=== PATIENT | female | born 1955 | race Caucasian/White ===

== ENCOUNTER 2016-11-23 02:30 | Inpatient (IN) | payer BC ==
[2016-11-23] VITALS (7 sets, daily range): BP systolic 93–127; BP diastolic 46–75
[~2016-11-23] VITALS: Ht 167.6 cm; Wt 56.9 kg
[~2016-11-23 02:30] MED LIST: ALEN70SO3 PO; ANAS1TAB3 PO; ASPI325T11 PO; ATOR40TA PO; CELE100C PO; PANT40TA3 PO; TRAM50TA PO; VORT10TA PO
[2016-11-23] MEDS: IV NORMAL SALINE 1000ML BAG 1,000 ML IV SCH ×3 (03:18→21:21)
[2016-11-23] MEDS: HYDROmorphone 2 MG/ML VIAL IV PRN ×6 (03:19→23:15)
[2016-11-23] MEDS: ONDANSETRON PF 4 MG/2 ML VIAL. IV PRN ×3 (03:19→13:22)
[2016-11-23 06:20] LABS: BASO # 0.1 x10^3/uL (0.0-0.2); BASO % 1 % (0-3); EOS % 0 % (0-3); HEMATOCRIT 40.8 % (36.0-47.0); HEMOGLOBIN 13.5 g/dL (12.0-15.5); LYMPH # 1.8 x10^3/uL (1.0-4.8); LYMPH % 21 % (24-48); MEAN CORPUSCULAR HEMOGLOBIN 31 pg (25-35); MEAN CORPUSCULAR HGB CONC 33 g/dL (31-37); MEAN CORPUSCULAR VOLUME 94 fL (79-100); MONO % 10 % (0-9); NEUT % 67 % (31-73); PLATELET COUNT 206 x10^3/uL (140-400); RED BLOOD COUNT 4.36 x10^6/uL (3.50-5.40); RED CELL DISTRIBUTION WIDTH 13.2 % (11.5-14.5); WHITE BLOOD COUNT 8.2 x10^3/uL (4.0-11.0)
[2016-11-23 07:18] LABS: ALBUMIN 2.9 g/dL (3.4-5.0); ALBUMIN/GLOBULIN RATIO 0.9 (1.0-1.7); CALCIUM 8.1 mg/dL (8.5-10.1); CREATININE 0.9 mg/dL (0.6-1.0); GFR 63.9; POTASSIUM 4.1 mmol/L (3.5-5.1); TOTAL BILIRUBIN 0.9 mg/dL (0.2-1.0); TOTAL PROTEIN 6.2 g/dL (6.4-8.2)
--- NOTE | 2016-11-23 09:02 | PDOC2 ---
GI CONSULT Reason For Consult: Splenic infarct HPI: HPI: 61 y/o female transferred from [facility]. ER physician notes indicate CT for left- sided abd pain showed splenic infarct vs hematoma. No imaging here. Labs significant for AST 675, ALT 685, Alk Phos 183. Per pt, she began feeling ill w / fullness and constipation on 11/19. H/o this; in fact, seen by GI/Dr. Mendoza in 12/2015 for chronic epigastric/periumbilical pain, n/v, constipation, and h/o GERD. At that time, CTs and SBFT unrevealing, EGD w/ non-erosive gastritis, GET normal; she was started on Amitiza for constipation and given Protonix for GERD. She now takes both of these PRN. Additionally used an enema on 11/19. Believes left-sided/LUQ pain (wraps around side to flank/back) began 11/20. Denies trauma. Hurts to move, keeps from sleeping. Has had associated nausea. Reports colonoscopy ~5 years ago w/ polyps. PMH: PMH: breast cancer s/p bilateral mastectomy w/ Anastrozole, cholecystectomy, hysterectomy, appendectomy, psoriasis FH: Family History: No pertinent hx Social History: Smoke: <1 pack per day ALCOHOL: occassional Drugs: None ROS: GEN: Denies fevers, chills, sweats HEENT: Denies blurred vision, sore throat CV: Denies chest pain RESP: Denies shortness of air, cough GI: Per HPI : Denies hematuria, dysuria ENDO: Denies weight changes NEURO: Denies confusion, dizziness MSK: Denies weakness, joint pain/swelling SKIN: Denies jaundice, pruritus VItals: Vitals: Vital Signs Date Time Temp Pulse Resp B/P Pulse Ox O2 Delivery O2 Flow Rate FiO2 11/23/16 07:40 98.0 81 20 99/56 94 Nasal Cannula 2.0 98.0 Labs: Labs: Laboratory Tests Test 11/23/16 06:00 White Blood Count 8.2x10^3/uL (4.0-11.0) Red Blood Count 4.36x10^6/uL (3.50-5.40) Hemoglobin 13.5g/dL (12.0-15.5) Hematocrit 40.8% (36.0-47.0) Mean Corpuscular Volume 94fL (79-100) Mean Corpuscular Hemoglobin 31pg (25-35) Mean Corpuscular Hemoglobin Concent 33g/dL (31-37) Red Cell Distribution Width 13.2% (11.5-14.5) Platelet Count 206x10^3/uL (140-400) Neutrophils (%) (Auto) 67% (31-73) Lymphocytes (%) (Auto) 21% (24-48) Monocytes (%) (Auto) 10% (0-9) Eosinophils (%) (Auto) 0% (0-3) Basophils (%) (Auto) 1% (0-3) Neutrophils # (Auto) 5.5x10^3uL (1.8-7.7) Lymphocytes # (Auto) 1.8x10^3/uL (1.0-4.8) Monocytes # (Auto) 0.9x10^3/uL (0.0-1.1) Eosinophils # (Auto) 0.0x10^3/uL (0.0-0.7) Basophils # (Auto) 0.1x10^3/uL (0.0-0.2) Sodium Level 142mmol/L (136-145) Potassium Level 4.1mmol/L (3.5-5.1) Chloride Level 107mmol/L (98-107) Carbon Dioxide Level 26mmol/L (21-32) Anion Gap 9 (6-14) Blood Urea Nitrogen 10mg/dL (7-20) Creatinine 0.9mg/dL (0.6-1.0) Estimated GFR (Cockcroft-Gault) 63.9 BUN/Creatinine Ratio 11 (6-20) Glucose Level 96mg/dL (70-99) Calcium Level 8.1mg/dL (8.5-10.1) Total Bilirubin 0.9mg/dL (0.2-1.0) Aspartate Amino Transf (AST/SGOT) 675U/L (15-37) Alanine Aminotransferase (ALT/SGPT) 685U/L (14-59) Alkaline Phosphatase 183U/L (46-116) Total Protein 6.2g/dL (6.4-8.2) Albumin 2.9g/dL (3.4-5.0) Albumin/Globulin Ratio 0.9 (1.0-1.7) Allergies: Coded Allergies: No Known Drug Allergies (Unverified , 12/24/15) Medications: Current Medications Medications (Trade) Dose Ordered Sig/Beena Route PRN Reason Start Time Stop Time Status Last Admin Dose Admin Sodium Chloride (Iv Sodium Chloride 0.9% 1000ml Bag) 1,000 ml @ 125 mls/hr Q8H IV 11/23/16 03:00 11/23/16 03:18 Ondansetron HCl (Zofran) 4 mg PRN Q4HRS PRN IV NAUSEA/VOMITING 11/23/16 03:00 11/23/16 03:19 Hydromorphone HCl (Dilaudid) 1 mg PRN Q2HR PRN IV PAIN 11/23/16 03:00 11/23/16 06:06 Imaging: Imaging: - PE: GEN: NAD HEENT: Atraumatic, PERRL LUNGS: CTAB anteriorly HEART: RRR ABD: NABS, S/ND, LUQ/left flank tenderness to light palpation EXTREMITY: No edema SKIN: No rashes, no jaundice NEURO/PSYCH: A & O 3 A/P: A/P: LUQ pain w/ abnormal CT (at [facility]) -onset 11/19-11/20 -ER physician note suggests CT shows splenic infarct vs hematoma (note normal Hgb) -does have chronic abd pain, work-up in 12/2015 included CTs, SBFT, GET, and EGD -take Amitiza and antacids PRN Abnormal LFTs -AST and ALT in 600s, Alk Phos 183 Nausea CRC screen, h/o colon polyps -says last colonoscopy 5 years ago -- D/w Dr. Mendoza. Will check ultrasound of liver. ZOILA BARKLEY Nov 23, 2016 09:02
--- NOTE | 2016-11-23 09:25 | PDOC2 ---
DEMIAN PARMAR Romel COUNSELING DIRECTOR 11/23/16 0925: CONSULT Date of Consult Date of Consult DATE: 11/23/16 TIME: 09:14 Reason for Consult Reason for Consult: splenic infarct Referring Physician Referring Physician: Dr Yung Identification/Chief Complaint Chief Complaint abdominal pain Source Source: Chart review, Patient History of Present Illness Reason for Visit: abdomen felt tight, constipated, started laxatives---yesterday had not had much results, did an enema--this had good results, however once her abdomen was improved she noted to have significant LUQ pain that wrapped to her back. This is a new pain and not similar to pain in past. Denies any trauma, injury, or coughing She has had some abdominal pain (epigastric) in past and seen GI She was evaluated at [facility] and records reveal a possible splenic infarct vs hematoma(no imaging brought with pt, nurse to FU on imaging from there), transferred her per pt request She is currently still having significant LUQ pain and associated nausea Past Medical History GI: Constipation, GERD Heme/Onc: Cancer (breast) Past Surgical History Past Surgical History: Appendectomy, Cholecystectomy, Other (joe mastectomy) Family History Family History: Other (non contributory to current illness ) Social History <1 pack per day ALCOHOL: occassional Drugs: None Lives: with Family Current Problem List Problem List Problems Medical Problems: (1) Splenic infarct Status: Acute Current Medications Current Medications Current Medications Sodium Chloride (Iv Sodium Chloride 0.9% 1000ml Bag) 1,000 ml @ 125 mls/hr Q8H IV Last administered on 11/23/16 03:18; Start 11/23/16 at 03:00 Ondansetron HCl (Zofran) 4 mg PRN Q4HRS PRN IV NAUSEA/VOMITING Last administered on 11/23/16 03:19; Start 11/23/16 at 03:00 Hydromorphone HCl (Dilaudid) 1 mg PRN Q2HR PRN IV PAIN Last administered on 06:06; Start 11/23/16 at 03:00 Active Scripts Active Reported Lipitor (Atorvastatin Calcium) 40 Mg Tablet 1 Tab PO QHS Tramadol Hcl 50 Mg Tablet 50 Mg PO PRN Q4HRS PRN Arimidex (Anastrozole) 1 Mg Tablet 2 Mg PO DAILY Allergies Allergies: Coded Allergies: No Known Drug Allergies (Unverified , 5/24/16) ROS General: No: Chills, Other (fevers) PSYCHOLOGICAL ROS: No: Anxiety, Depression Eyes: No Blurry vision, No Double vision HEENT: No: Heacaches, Sore Throat Hematological and Lymphatic: No: Bleeding Problems, Blood Clots Respiratory: No: Cough, Shortness of breath Cardiovascular: No Chest Pain, No Palpitations Gastrointestinal: Yes Other (see hpi) Genitourinary: No Dysuria, No Hematuria Musculoskeletal: No Joint Pain, No Muscle Pain Neurological: No Impaired Coord/balance, No Numbness/Tingling Skin: Yes Other (psoriasis ) Physical Exam General: Alert, Oriented X3, Cooperative, Other (acute pain ) HEENT: PERRLA, Mucous membr. moist/pink Lungs: Clear to auscultation, Normal air movement Heart: Regular rate, Normal S1, Normal S2, No murmurs Abdomen: Soft, Other (LUQ/to back TTP with palpation, no ecchymosis seen) Extremities: No clubbing, No cyanosis Skin: No breakdown, Other (psoriasis on arms ) Neuro: Normal speech, Sensation intact Psych/Mental Status: Mental status NL, Mood NL MUSCULOSKELETAL: No deformity, No swelling Vitals VITALS Vital Signs Date Time Temp Pulse Resp B/P Pulse Ox O2 Delivery O2 Flow Rate FiO2 11/23/16 07:40 98.0 81 20 99/56 94 Nasal Cannula 2.0 98.0 Labs Labs Laboratory Tests Test 11/23/16 06:00 White Blood Count 8.2x10^3/uL (4.0-11.0) Red Blood Count 4.36x10^6/uL (3.50-5.40) Hemoglobin 13.5g/dL (12.0-15.5) Hematocrit 40.8% (36.0-47.0) Mean Corpuscular Volume 94fL (79-100) Mean Corpuscular Hemoglobin 31pg (25-35) Mean Corpuscular Hemoglobin Concent 33g/dL (31-37) Red Cell Distribution Width 13.2% (11.5-14.5) Platelet Count 206x10^3/uL (140-400) Neutrophils (%) (Auto) 67% (31-73) Lymphocytes (%) (Auto) 21% (24-48) Monocytes (%) (Auto) 10% (0-9) Eosinophils (%) (Auto) 0% (0-3) Basophils (%) (Auto) 1% (0-3) Neutrophils # (Auto) 5.5x10^3uL (1.8-7.7) Lymphocytes # (Auto) 1.8x10^3/uL (1.0-4.8) Monocytes # (Auto) 0.9x10^3/uL (0.0-1.1) Eosinophils # (Auto) 0.0x10^3/uL (0.0-0.7) Basophils # (Auto) 0.1x10^3/uL (0.0-0.2) Sodium Level 142mmol/L (136-145) Potassium Level 4.1mmol/L (3.5-5.1) Chloride Level 107mmol/L (98-107) Carbon Dioxide Level 26mmol/L (21-32) Anion Gap 9 (6-14) Blood Urea Nitrogen 10mg/dL (7-20) Creatinine 0.9mg/dL (0.6-1.0) Estimated GFR (Cockcroft-Gault) 63.9 BUN/Creatinine Ratio 11 (6-20) Glucose Level 96mg/dL (70-99) Calcium Level 8.1mg/dL (8.5-10.1) Total Bilirubin 0.9mg/dL (0.2-1.0) Aspartate Amino Transf (AST/SGOT) 675U/L (15-37) Alanine Aminotransferase (ALT/SGPT) 685U/L (14-59) Alkaline Phosphatase 183U/L (46-116) Total Protein 6.2g/dL (6.4-8.2) Albumin 2.9g/dL (3.4-5.0) Albumin/Globulin Ratio 0.9 (1.0-1.7) Laboratory Tests Test 11/23/16 06:00 White Blood Count 8.2x10^3/uL (4.0-11.0) Red Blood Count 4.36x10^6/uL (3.50-5.40) Hemoglobin 13.5g/dL (12.0-15.5) Hematocrit 40.8% (36.0-47.0) Mean Corpuscular Volume 94fL (79-100) Mean Corpuscular Hemoglobin 31pg (25-35) Mean Corpuscular Hemoglobin Concent 33g/dL (31-37) Red Cell Distribution Width 13.2% (11.5-14.5) Platelet Count 206x10^3/uL (140-400) Neutrophils (%) (Auto) 67% (31-73) Lymphocytes (%) (Auto) 21% (24-48) Monocytes (%) (Auto) 10% (0-9) Eosinophils (%) (Auto) 0% (0-3) Basophils (%) (Auto) 1% (0-3) Neutrophils # (Auto) 5.5x10^3uL (1.8-7.7) Lymphocytes # (Auto) 1.8x10^3/uL (1.0-4.8) Monocytes # (Auto) 0.9x10^3/uL (0.0-1.1) Eosinophils # (Auto) 0.0x10^3/uL (0.0-0.7) Basophils # (Auto) 0.1x10^3/uL (0.0-0.2) Sodium Level 142mmol/L (136-145) Potassium Level 4.1mmol/L (3.5-5.1) Chloride Level 107mmol/L (98-107) Carbon Dioxide Level 26mmol/L (21-32) Anion Gap 9 (6-14) Blood Urea Nitrogen 10mg/dL (7-20) Creatinine 0.9mg/dL (0.6-1.0) Estimated GFR (Cockcroft-Gault) 63.9 BUN/Creatinine Ratio 11 (6-20) Glucose Level 96mg/dL (70-99) Calcium Level 8.1mg/dL (8.5-10.1) Total Bilirubin 0.9mg/dL (0.2-1.0) Aspartate Amino Transf (AST/SGOT) 675U/L (15-37) Alanine Aminotransferase (ALT/SGPT) 685U/L (14-59) Alkaline Phosphatase 183U/L (46-116) Total Protein 6.2g/dL (6.4-8.2) Albumin 2.9g/dL (3.4-5.0) Albumin/Globulin Ratio 0.9 (1.0-1.7) Assessment/Plan Assessment/Plan abdominal pain, possible splenic infarct vs hematoma(no imaging, nurse to FU)-- hgb 13.5 elevated LFTS, normal at [facility] last night GI following Tobaccoism breast cancer history constipation monitor, CT report from [facility] GI following, US of abdomen pending MIGUEL SUAREZ MD 11/23/16 1535: CONSULT Allergies Allergies: Coded Allergies: No Known Drug Allergies (Unverified , 12/24/15) Assessment/Plan Assessment/Plan addendum i saw and examined her. i reviewed the available [facility] records. the entire ct report is not on her chart. no films to review. i repeated gonzalez parts of her consult 61 female developed abd pain on . was diffuse then localized to her LUQ. became severe. radiated to left flank. not improved with an enema. worse if she takes a deep breath. pain is sharp. denies strenuous activity, trauma or recent URI (no hx to suggest mono). the partial [facility] ct report says: ill defined complex hypoattenuation in posterior lower spleen 2.9x5.3x3.4 cm. no impression or differential available abd soft nd mild LUQ tenderness hgb ~13 does not appear ill u/s at [facility] does not demonstrate splenic abnormality a/p ill defined lesion involving spleen per partial records from [facility]. at this point , the most expeditious way to view her spleen and 'take the guesswork out' of her care is to repeat the CT. she and her family are agreeable. DEMIAN PARMAR APRN Nov 23, 2016 09:25 MIGUEL SUAREZ MD Nov 23, 2016 15:35
[2016-11-23] MEDS: ANASTROZOLE 1 MG TABLET PO SCH (12:39)
[2016-11-23] MEDS: TRAMADOL 50 MG TABLET. PO PRN ×2 (12:43→21:30)
--- NOTE | 2016-11-23 14:22 | RAD ---
Abdominal ultrasound, 11/23/2016: History: Abnormal liver function tests, splenic hematoma/infarct The gallbladder is surgically absent. The common bile duct measures 10-11 mm, probably related to the postcholecystectomy state. No intrahepatic biliary ductal dilatation is seen. There is no evidence of a hepatic mass. The visualized portions of the pancreas show no significant abnormality. The spleen measures 10 cm in craniocaudad extent. No splenic abnormality is delineated. The patient's outside study which reportedly showed some sort splenic abnormality is not currently available for correlative purposes. The kidneys are unremarkable. There is atherosclerotic plaquing of the abdominal aorta without evidence of aneurysm. The visualized portions of the inferior vena cava show no abnormality. No free fluid is evident in the abdomen. IMPRESSION: 1. Status post cholecystectomy. 2. Mild prominence of the common hepatic duct is probably secondary to the postcholecystectomy state. 3. Aortic atherosclerosis. 4. No acute abdominal abnormality is detected.
[2016-11-23] MEDS ORDERED: IOHEXOL 300 MG/ML 75 ML VIAL IV ONE (16:15)
[2016-11-23] MEDS ORDERED: IOHEXOL 240 MG/ML 50ML VIAL. PO ONE (16:15)
[2016-11-23] MEDS ORDERED: CONTRAST GIVEN MC PRN (16:15)
--- NOTE | 2016-11-23 16:53 | RAD ---
CT abdomen and pelvis with IV contrast History: Possible splenic infarction on outside imaging. Comparison: Referenced outside imaging is not available. Comparison to CT abdomen pelvis 12/20/2015 was made. Technique: After administration of oral and intravenous contrast, 75 mL Omnipaque 300, helical CT of the abdomen and pelvis was performed from the lung bases through the ischial tuberosities. Axial, sagittal, and coronal reconstructions were obtained. One or more of the following individualized dose reduction techniques were utilized for the study: Automated exposure control Adjustment of mA and/or kV according to patient's size Use of iterative reconstruction technique. Findings: Images of the lower chest demonstrate bilateral silicone breast implants, incompletely visualized. Liver, pancreas, and bilateral adrenal glands are unremarkable. Bilateral kidneys enhance symmetrically. There is no evidence of bowel obstruction. No free air is seen in the abdomen or pelvis. Urinary bladder is unremarkable. Uterus is absent. There is wedge-shaped area of decreased enhancement involving the inferior aspect of the spleen. There is associated adjacent fat stranding inflammation. Findings are compatible with recent splenic infarction. Calcified atherosclerotic plaquing can be seen involving the splenic artery as well as the aorta and iliac vessels. Impression: Recent infarction involving the inferior aspect of the spleen.
--- NOTE | 2016-11-23 20:11 | PDOC ---
GENERAL General: significant luq pain due to splenic infarct. also with significantly elevated transaminases and not sure how these two fit together exactly but have consulted GI for opinion. surgery eval also ordered in case splenectomy a reality which doesn't appear to be case now. see dictated H&P. Problems: VITAL SIGNS Vital Signs: Vital Signs Date Time Temp Pulse Resp B/P Pulse Ox O2 Delivery O2 Flow Rate FiO2 11/23/16 19:02 16 Nasal Cannula 2.0 11/23/16 15:14 98.6 79 93/46 97 98.6 I & O I & O Intake and Output 11/23/16 07:00 Intake Total 440 ml Output Total 500 ml Balance -60 ml Intake Oral 440 ml Output Urine Total 500 ml ALLERGIES Allergies: Allergies Coded Allergies Type Severity Reaction Last Updated Verified No Known Drug Allergies 12/24/15 No MEDS Medications: Current Medications Medications (Trade) Dose Ordered Sig/Beena Start Time Stop Time Status Last Admin Dose Admin Anastrozole (Arimidex) 2 mg DAILY 11/23/16 12:00 11/23/16 12:39 2 MG Atorvastatin Calcium (Lipitor) 40 mg QHS 11/23/16 21:00 Hydromorphone HCl (Dilaudid) 1 mg PRN Q2HR PRN 11/23/16 03:00 11/23/16 19:02 1 MG Info (Do NOT chart on this entry -- for MONITORING) 1 each PRN DAILY PRN 11/23/16 16:15 11/25/16 16:14 Iohexol (Omnipaque 240 Mg/ml) 50 ml 1X ONCE 11/23/16 16:15 11/23/16 16:16 DC Iohexol (Omnipaque 300 Mg/ml) 75 ml 1X ONCE 11/23/16 16:15 11/23/16 16:16 DC 11/23/16 16:11 75 ML Ondansetron HCl (Zofran) 4 mg PRN Q4HRS PRN 11/23/16 03:00 11/23/16 13:22 4 MG Sodium Chloride (Iv Sodium Chloride 0.9% 1000ml Bag) 1,000 ml @ 125 mls/hr Q8H 11/23/16 03:00 11/23/16 12:29 125 MLS/HR Tramadol HCl (Ultram) 50 mg PRN Q4HRS PRN 11/23/16 12:00 4/24/17 12:43 50 MG LAB Lab: Laboratory Tests Test 11/23/16 06:00 White Blood Count 8.2x10^3/uL (4.0-11.0) Red Blood Count 4.36x10^6/uL (3.50-5.40) Hemoglobin 13.5g/dL (12.0-15.5) Hematocrit 40.8% (36.0-47.0) Mean Corpuscular Volume 94fL (79-100) Mean Corpuscular Hemoglobin 31pg (25-35) Mean Corpuscular Hemoglobin Concent 33g/dL (31-37) Red Cell Distribution Width 13.2% (11.5-14.5) Platelet Count 206x10^3/uL (140-400) Neutrophils (%) (Auto) 67% (31-73) Lymphocytes (%) (Auto) 21% (24-48) Monocytes (%) (Auto) 10% (0-9) Eosinophils (%) (Auto) 0% (0-3) Basophils (%) (Auto) 1% (0-3) Neutrophils # (Auto) 5.5x10^3uL (1.8-7.7) Lymphocytes # (Auto) 1.8x10^3/uL (1.0-4.8) Monocytes # (Auto) 0.9x10^3/uL (0.0-1.1) Eosinophils # (Auto) 0.0x10^3/uL (0.0-0.7) Basophils # (Auto) 0.1x10^3/uL (0.0-0.2) Sodium Level 142mmol/L (136-145) Potassium Level 4.1mmol/L (3.5-5.1) Chloride Level 107mmol/L (98-107) Carbon Dioxide Level 26mmol/L (21-32) Anion Gap 9 (6-14) Blood Urea Nitrogen 10mg/dL (7-20) Creatinine 0.9mg/dL (0.6-1.0) Estimated GFR (Cockcroft-Gault) 63.9 BUN/Creatinine Ratio 11 (6-20) Glucose Level 96mg/dL (70-99) Calcium Level 8.1mg/dL (8.5-10.1) Total Bilirubin 0.9mg/dL (0.2-1.0) Aspartate Amino Transf (AST/SGOT) 675U/L (15-37) Alanine Aminotransferase (ALT/SGPT) 685U/L (14-59) Alkaline Phosphatase 183U/L (46-116) Total Protein 6.2g/dL (6.4-8.2) Albumin 2.9g/dL (3.4-5.0) Albumin/Globulin Ratio 0.9 (1.0-1.7) ARLEEN HOOD MD Nov 23, 2016 20:11
[2016-11-23] MEDS: ATORVASTATIN CALCIUM 40 MG TABLET. PO SCH (21:20)
--- NOTE | 2016-11-23 21:37 | HP ---
ADMIT DATE: 11/23/2016 CHIEF COMPLAINT AND HISTORY OF PRESENT ILLNESS: This is a 61-year-old white female who is well known to me from followup in the office. The patient at the beginning had some epigastric left upper quadrant pain last . She took an enema thinking that it may be constipation. It was no better. It got progressively worse to where it was excruciating in the evening prior to admission where she went to the ____ [facility] satellite. She was found to have either a hematoma or an infarct of the spleen; was needing IV pain medicine. It was felt that she should be admitted and she wished to go where I went so during the night arranged the transfer to [facility]. PAST MEDICAL HISTORY: Remarkable for prior carcinoma of the breast. She takes an ____ for the same. PAST SURGICAL HISTORY: She has had a hysterectomy, appendectomy, cholecystectomy, and psoriasis. FAMILY HISTORY: Positive for diabetes. SOCIAL HISTORY: She is a smoker of 1 pack per day, occasionally drinks alcohol, does not use drugs; is . MEDICATIONS: Brought with the patient, listed on the computer and have been addressed. ALLERGIES: She has no known drug allergies. REVIEW OF SYSTEMS: As mentioned above. PHYSICAL EXAMINATION: GENERAL: She is a well-developed, well-nourished white female, relatively comfortable with pain medicines at the time of my examination. VITAL SIGNS: Stable. She is afebrile. HEENT: Unremarkable. NECK: Supple without adenopathy or thyromegaly. CHEST: Clear to auscultation and percussion. HEART: Regular rate and rhythm without S3, S4 or murmur. ABDOMEN: Reveal marked left upper quadrant tenderness on exam, otherwise benign. EXTREMITIES: Without cyanosis, clubbing or edema. NEUROLOGIC: She is intact. LABORATORY DATA: Initial lab from the Emergency Room was only remarkable for slight elevation of her white blood count. Labs drawn here at [facility] shows some fairly marked elevation of transaminases with an AST of 675 and ALT of ____ although these were really not checked at the Emergency Room there. IMPRESSION: 1. Splenic infarct with pain; elevated liver function tests, unsure how this ties into this. 2. Other problems listed above. PLAN: The patient has been admitted. She is being dehydrated. IV pain medicines will be utilized. GI and surgery will consulted and the patient will be monitored, managed and treated appropriately. ARLEEN HOOD MD DR: Carlos JOB#: [id number] / [id number]
[2016-11-24 03:02] VITALS: BP 110/57
[2016-11-24] MEDS: HYDROmorphone 2 MG/ML VIAL IV PRN ×5 (03:15→19:58)
[2016-11-24] MEDS: IV NORMAL SALINE 1000ML BAG 1,000 ML IV SCH ×3 (03:16→18:28)
[2016-11-24 07:45] VITALS: BP 117/64
[2016-11-24] MEDS: ONDANSETRON PF 4 MG/2 ML VIAL. IV PRN (09:21)
[2016-11-24] MEDS: ANASTROZOLE 1 MG TABLET PO SCH (09:25)
[2016-11-24] MEDS: TRAMADOL 50 MG TABLET. PO PRN ×2 (09:28→20:56)
[2016-11-24 10:36] VITALS: BP 114/63
--- NOTE | 2016-11-24 11:12 | PDOC ---
Provider Note Provider Note LUQ pain and nausea persist. afeb vss abd soft nd mild LUQ tenderness ct with splenic infarct a/p splenic infarct. no surgical plans. diet as tolerated. will sign off. please call with questions or change in condition. thank you MIGUEL SUAREZ MD Nov 24, 2016 11:12
[2016-11-24] MEDS: ALBUTEROL SULFATE 2.5 MG/3 ML NEBU. NEB SCH ×3 (11:47→18:45)
--- NOTE | 2016-11-24 12:00 | PDOC ---
Subjective: Subjective: Per pt and daughter - some nausea w/o vomiting, left-sided pain now more toward back, urinary hesitancy. Objective: Objective: Per RN - some nausea this morning, ongoing pain. Vital Signs: Vital Signs Date Time Temp Pulse Resp B/P Pulse Ox O2 Delivery O2 Flow Rate FiO2 11/24/16 11:51 98 Nasal Cannula 1.0 11/24/16 10:36 98.9 79 16 114/63 98.9 Imaging: CT A/P w/ oral and IV contrast 11/23/16 Images of the lower chest demonstrate bilateral silicone breast implants, incompletely visualized. Liver, pancreas, and bilateral adrenal glands are unremarkable. Bilateral kidneys enhance symmetrically. There is no evidence of bowel obstruction. No free air is seen in the abdomen or pelvis. Urinary bladder is unremarkable. Uterus is absent. There is wedge-shaped area of decreased enhancement involving the inferior aspect of the spleen. There is associated adjacent fat stranding inflammation. Findings are compatible with recent splenic infarction. Calcified atherosclerotic plaquing can be seen involving the splenic artery as well as the aorta and iliac vessels. Impression: Recent infarction involving the inferior aspect of the spleen. Abd US 11/23/16 The gallbladder is surgically absent. The common bile duct measures 10-11 mm, probably related to the postcholecystectomy state. No intrahepatic biliary ductal dilatation is seen. There is no evidence of a hepatic mass. The visualized portions of the pancreas show no significant abnormality. The spleen measures 10 cm in craniocaudad extent. No splenic abnormality is delineated. The patient's outside study which reportedly showed some sort splenic abnormality is not currently available for correlative purposes. The kidneys are unremarkable. There is atherosclerotic plaquing of the abdominal aorta without evidence of aneurysm. The visualized portions of the inferior vena cava show no abnormality. No free fluid is evident in the abdomen. IMPRESSION: 1. Status post cholecystectomy. 2. Mild prominence of the common hepatic duct is probably secondary to the postcholecystectomy state. 3. Aortic atherosclerosis. 4. No acute abdominal abnormality is detected. PE: GEN: NAD LUNGS: CTAB HEART: RRR ABD: less LUQ tenderness, BS+ NEURO/PSYCH: A & O 3 A/P: LUQ/left flank pain w/ abnormal CT suggesting slepnic infarct -onset 11/19-11/20 -reviewed CT from [facility], repeat CT at this facility as above -does have chronic abd pain, work-up in 12/2015 included CTs, SBFT, GET, and EGD -reports colonoscopy w/ polyps ~5 years ago Abnormal LFTs -AST and ALT in 600s, Alk Phos 183 on 11/23/16 -abd US w/o hepatic mass Nausea Urinary hesitancy -per primary -- Will restart PPI and Amitiza, which she takes PRN at home. Surgery has seen/signed off. Heme consult pending. Will review w/ Dr. Mendoza. ZOILA BARKLEY Nov 24, 2016 12:00
[2016-11-24] MEDS: PANTOPRAZOLE 40 MG TABLET.DR. PO SCH (12:50)
--- NOTE | 2016-11-24 13:20 | PDOC ---
Provider Note Provider Note Hem/Onc consult 1. Splenic infarct - hypercoag labs ordered. f/u with Dr Storm for results No role for anticoagulation. See dictation KRISTEL ANTUNEZ MD Nov 24, 2016 13:20
[2016-11-24 15:06] LABS: BILIRUBIN,URINE NEGATIVE (NEG); GLUCOSE,URINE NEGATIVE (NEG); NITRITE,URINE NEGATIVE (NEG); PROTEIN,URINE NEGATIVE (NEG-TRACE)
[2016-11-24 15:21] LABS: BACTERIA,URINE 0 /HPF (0-FEW); RBC,URINE 0 /HPF (0-2); SQUAMOUS EPITHELIAL CELL,UR FEW /LPF
[2016-11-24 15:50] VITALS: BP 112/54
[2016-11-24] MEDS: LUBIPROSTONE 8 MCG CAPSULE PO SCH (17:17)
[2016-11-24 19:00] VITALS: BP 100/50
--- NOTE | 2016-11-24 19:47 | PDOC ---
GENERAL General: vss and afebrile. awake and alert and daughter in attendance. some less luq tenderness but still very significant. chest clear and heart regular. us liver negative will elevated transaminases. will recheck lft's in am. GI and surgery input appreciated. Problems: VITAL SIGNS Vital Signs: Vital Signs Date Time Temp Pulse Resp B/P Pulse Ox O2 Delivery O2 Flow Rate FiO2 11/24/16 18:46 Room Air 11/24/16 17:47 16 2.0 11/24/16 17:30 97.8 97.8 11/24/16 15:50 84 112/54 97 I & O I & O Intake and Output 11/24/16 07:00 Intake Total 480 ml Output Total 1900 ml Balance -1420 ml Intake Oral 480 ml Output Urine Total 1900 ml ALLERGIES Allergies: Allergies Coded Allergies Type Severity Reaction Last Updated Verified No Known Drug Allergies 12/24/15 No MEDS Medications: Current Medications Medications (Trade) Dose Ordered Sig/Beena Start Time Stop Time Status Last Admin Dose Admin Albuterol Sulfate (Ventolin Neb Soln) 2.5 mg RTQID 11/24/16 12:00 11/24/16 18:45 2.5 MG Anastrozole (Arimidex) 2 mg DAILY 11/23/16 12:00 11/24/16 09:25 2 MG Atorvastatin Calcium (Lipitor) 40 mg QHS 11/23/16 21:00 11/23/16 21:20 40 MG Hydromorphone HCl (Dilaudid) 1 mg PRN Q2HR PRN 11/23/16 03:00 11/24/16 17:17 1 MG Info (Do NOT chart on this entry -- for MONITORING) 1 each PRN DAILY PRN 11/23/16 16:15 11/25/16 16:14 Iohexol (Omnipaque 240 Mg/ml) 50 ml 1X ONCE 11/23/16 16:15 11/23/16 16:16 DC Iohexol (Omnipaque 300 Mg/ml) 75 ml 1X ONCE 11/23/16 16:15 11/23/16 16:16 DC 11/23/16 16:11 75 ML Lubiprostone (Amitiza) 8 mcg BIDWMEALS 11/24/16 17:00 11/24/16 17:17 8 MCG Ondansetron HCl (Zofran) 4 mg PRN Q4HRS PRN 11/23/16 03:00 11/24/16 09:21 4 MG Pantoprazole Sodium (Protonix) 40 mg DAILYAC 11/24/16 12:30 11/24/16 12:50 40 MG Sodium Chloride (Iv Sodium Chloride 0.9% 1000ml Bag) 1,000 ml @ 125 mls/hr Q8H 11/23/16 03:00 11/24/16 18:28 125 MLS/HR Tramadol HCl (Ultram) 50 mg PRN Q4HRS PRN 11/23/16 12:00 11/24/16 09:28 50 MG LAB Lab: Laboratory Tests Test 11/24/16 15:00 Urine Collection Type Unknown Urine Color Yellow Urine Clarity Clear Urine pH 6.0 Urine Specific [place] <=1.005 Urine Protein Negativemg/dL (NEG-TRACE) Urine Glucose (UA) Negativemg/dL (NEG) Urine Ketones (Stick) Negativemg/dL (NEG) Urine Blood Negative (NEG) Urine Nitrite Negative (NEG) Urine Bilirubin Negative (NEG) Urine Urobilinogen Dipstick 1.0mg/dL (0.2 mg/dL) Urine Leukocyte Esterase Trace (NEG) Urine RBC 0/HPF (0-2) Urine WBC 1-4/HPF (0-4) Urine Squamous Epithelial Cells Few/LPF Urine Bacteria 0/HPF (0-FEW) ARLEEN HOOD MD Nov 24, 2016 19:47
[2016-11-24] MEDS: ATORVASTATIN CALCIUM 40 MG TABLET. PO SCH (20:56)
[2016-11-24 22:50] VITALS: BP 133/65
[2016-11-25] MEDS: HYDROmorphone 2 MG/ML VIAL IV PRN (02:53)
[2016-11-25] MEDS: IV NORMAL SALINE 1000ML BAG 1,000 ML IV SCH ×2 (02:54→11:00)
[2016-11-25 03:05] VITALS: BP 104/57
[2016-11-25 04:21] LABS: ALBUMIN 2.5 g/dL (3.4-5.0); ALBUMIN/GLOBULIN RATIO 0.9 (1.0-1.7); CREATININE 0.8 mg/dL (0.6-1.0); GFR 73.2; POTASSIUM 3.5 mmol/L (3.5-5.1); TOTAL BILIRUBIN 0.9 mg/dL (0.2-1.0); TOTAL PROTEIN 5.3 g/dL (6.4-8.2)
[2016-11-25 04:24] LABS: ALBUMIN 2.5 g/dL (3.4-5.0); DIRECT BILIRUBIN 0.3 mg/dL (0.0-0.2); TOTAL BILIRUBIN 0.9 mg/dL (0.2-1.0); TOTAL PROTEIN 4.9 g/dL (6.4-8.2)
[2016-11-25 07:00] VITALS: BP 132/66
--- NOTE | 2016-11-25 08:13 | PDOC ---
GENERAL General: vss with tmax 99.7. awake and alert and pain definitely as bad as on admission. will start po norco and advance diet today and if does well potential dc if imaging ok. Problems: VITAL SIGNS Vital Signs: Vital Signs Date Time Temp Pulse Resp B/P Pulse Ox O2 Delivery O2 Flow Rate FiO2 11/25/16 03:25 16 96 Room Air 11/25/16 03:05 99.7 89 104/57 99.7 11/24/16 19:40 2.0 I & O I & O Intake and Output 11/25/16 06:59 Intake Total 1840 ml Output Total 2800 ml Balance -960 ml Intake Oral 640 ml IV Total 1200 ml Output Urine Total 2800 ml # Bowel Movements 1 ALLERGIES Allergies: Allergies Coded Allergies Type Severity Reaction Last Updated Verified No Known Drug Allergies 12/24/15 No MEDS Medications: Current Medications Medications (Trade) Dose Ordered Sig/Beena Start Time Stop Time Status Last Admin Dose Admin Albuterol Sulfate (Ventolin Neb Soln) 2.5 mg RTQID 11/24/16 12:00 11/24/16 18:45 2.5 MG Anastrozole (Arimidex) 2 mg DAILY 11/23/16 12:00 11/24/16 09:25 2 MG Atorvastatin Calcium (Lipitor) 40 mg QHS 11/23/16 21:00 11/24/16 20:56 40 MG Hydromorphone HCl (Dilaudid) 1 mg PRN Q2HR PRN 11/23/16 03:00 11/25/16 02:53 1 MG Info (Do NOT chart on this entry -- for MONITORING) 1 each PRN DAILY PRN 11/23/16 16:15 11/25/16 16:14 Iohexol (Omnipaque 240 Mg/ml) 50 ml 1X ONCE 11/23/16 16:15 11/23/16 16:16 DC Iohexol (Omnipaque 300 Mg/ml) 75 ml 1X ONCE 11/23/16 16:15 11/23/16 16:16 DC 11/23/16 16:11 75 ML Lubiprostone (Amitiza) 8 mcg BIDWMEALS 11/24/16 17:00 11/24/16 17:17 8 MCG Ondansetron HCl (Zofran) 4 mg PRN Q4HRS PRN 11/23/16 03:00 11/24/16 09:21 4 MG Pantoprazole Sodium (Protonix) 40 mg DAILYAC 11/24/16 12:30 11/24/16 12:50 40 MG Sodium Chloride (Iv Sodium Chloride 0.9% 1000ml Bag) 1,000 ml @ 125 mls/hr Q8H 11/23/16 03:00 11/25/16 02:54 125 MLS/HR Tramadol HCl (Ultram) 50 mg PRN Q4HRS PRN 11/23/16 12:00 11/24/16 20:56 50 MG LAB Lab: Laboratory Tests Test 11/24/16 15:00 11/25/16 03:12 Urine Collection Type Unknown Urine Color Yellow Urine Clarity Clear Urine pH 6.0 Urine Specific [place] <=1.005 Urine Protein Negativemg/dL (NEG-TRACE) Urine Glucose (UA) Negativemg/dL (NEG) Urine Ketones (Stick) Negativemg/dL (NEG) Urine Blood Negative (NEG) Urine Nitrite Negative (NEG) Urine Bilirubin Negative (NEG) Urine Urobilinogen Dipstick 1.0mg/dL (0.2 mg/dL) Urine Leukocyte Esterase Trace (NEG) Urine RBC 0/HPF (0-2) Urine WBC 1-4/HPF (0-4) Urine Squamous Epithelial Cells Few/LPF Urine Bacteria 0/HPF (0-FEW) Sodium Level 141mmol/L (136-145) Potassium Level 3.5mmol/L (3.5-5.1) Chloride Level 105mmol/L (98-107) Carbon Dioxide Level 29mmol/L (21-32) Anion Gap 7 (6-14) Blood Urea Nitrogen 3mg/dL (7-20) Creatinine 0.8mg/dL (0.6-1.0) Estimated GFR (Cockcroft-Gault) 73.2 BUN/Creatinine Ratio 4 (6-20) Glucose Level 95mg/dL (70-99) Calcium Level 8.0mg/dL (8.5-10.1) Total Bilirubin 0.9mg/dL (0.2-1.0) Direct Bilirubin 0.3mg/dL (0.0-0.2) Aspartate Amino Transf (AST/SGOT) 79U/L (15-37) Alanine Aminotransferase (ALT/SGPT) 234U/L (14-59) Alkaline Phosphatase 208U/L (46-116) Total Protein 5.3g/dL (6.4-8.2) Albumin 2.5g/dL (3.4-5.0) Albumin/Globulin Ratio 0.9 (1.0-1.7) ARLEEN HOOD MD Nov 25, 2016 08:13
[2016-11-25] MEDS ORDERED: HYDROCODONE/APAP 5/325MG TABLET. PO PRN (08:15)
[2016-11-25] MEDS: ALBUTEROL SULFATE 2.5 MG/3 ML NEBU. NEB SCH ×3 (08:32→15:31)
--- NOTE | 2016-11-25 09:23 | CONS ---
DATE OF CONSULTATION: 11/23/2016 REQUESTING PHYSICIAN: Dr. Arleen Preston REASON FOR CONSULTATION: Splenic infarct. HISTORY OF PRESENT ILLNESS: The patient is 61-year-old female who was diagnosed with right breast cancer T1cN1 invasive ductal carcinoma in July of 2011 grade 3, ER positive, VT negative, HER-2/georges negative. She underwent bilateral mastectomy and she received dose dense chemotherapy with Adriamycin and Cytoxan, followed by Taxol and then she was started on Arimidex from 07/2012. She has a BRCA2 mutation and she underwent hysterectomy and bilateral salpingo-oophorectomy in 05/2012. She has been following Dr. Angelina Storm and her last visit with Dr. Storm was in 09/2016 and there was no evidence of recurrence. The patient [facility] on 11/23/2016 with left-sided abdominal pain. She underwent CT scan of the abdomen and pelvis on 11/23/2016 that revealed a recent infarction involving the inferior aspect of the spleen. There was no evidence of malignancy. She was evaluated by both Gastroenterology and Surgery. Hematology/Oncology consultation was requested for hypercoagulable state workup. Her liver function tests were also noted to be elevated with AST of 675, ALT 685, alkaline phosphatase 183, albumin 2.9 on 11/23/2016. She denies any history of liver disease. Review of the prior records from 10/16/2016 reveals that her liver function tests were normal. Her AST was 19, ALT 15, alkaline phosphatase 101. PAST MEDICAL HISTORY: Breast cancer as described above, bilateral mastectomy, hysterectomy, bilateral oophorectomy, appendectomy, psoriasis. FAMILY HISTORY: Sister had breast cancer. Maternal aunt had breast cancer, maternal grandmother had breast cancer. SOCIAL HISTORY: She has smoked cigarettes for at least 40 years less than a pack a day and I have advised her to quit smoking. REVIEW OF SYSTEMS: A 12-point review of system was performed. Pertinent positives are mentioned in the history of present illness and the rest of the system review is negative. PHYSICAL EXAMINATION: GENERAL APPEARANCE: The patient is a 61-year-old female who is in no acute cardiorespiratory distress. VITAL SIGNS: Blood pressure 112/54, temperature 99.0. HEENT: Head atraumatic, normocephalic. Eyes: No icterus. NECK: Supple. CHEST: Bilaterally symmetrical. HEART: S1, S2 normal. ABDOMEN: Soft, nontender. CENTRAL NERVOUS SYSTEM: No focal deficits. LYMPHATICS: No lymphadenopathy. SKIN: No rashes. PSYCHOLOGIC: Mood and affect are appropriate. MUSCULOSKELETAL: No joint effusions. LABORATORY DATA: WBC 8.2, hemoglobin 13.5, platelet count 206, total bilirubin 0.9, AST 675, ALT 685. Alkaline phosphatase is 183. Total protein 6.2, albumin 2.9. IMPRESSION AND PLAN: 1. Splenic infarct. There is no evidence of a thrombus noted on CT scan. She does have a history of breast cancer in 2011. Clinically, there are no signs of recurrence and CT abdomen does not reveal any evidence of liver metastasis. I will initiate hypercoagulable state workup. I will also plan restaging CT scan of the chest and bone scan to evaluate for malignancy. I explained to her that the several causes for splenic infarction. Some of the causes of splenic infarction include hypercoagulable state, malignancy, embolic disease, myeloproliferative disorder, sickle cell disease etc. Her hemoglobin was normal and hence I do not suspect a myeloproliferative neoplasm or sickle cell disease. Appreciate gastrointestinal and surgical management. No surgery has been planned. 1. The patient will follow up with Dr. Angelina Storm upon discharge for continued management of her breast cancer and also to review the results of the hypercoagulable state workup. 2. Breast cancer in 2011, status post bilateral mastectomy, BRCA mutation is positive. She has also undergone hysterectomy and bilateral salpingo-oophorectomy. Clinically, there is no evidence of recurrence. I will obtain CT chest and bone scan to make sure she does not have any evidence of malignancy. 3. Elevated liver function tests, which is acute. Management per Gastroenterology. KRISTEL ANTUNEZ MD DR: IRA/carol JOB#: [id number] / [id number] ARLEEN Jarvis MD, AMY MD MTDD
[2016-11-25] MEDS: PANTOPRAZOLE 40 MG TABLET.DR. PO SCH (09:45)
[2016-11-25] MEDS: HYDROCODONE/APAP 5/325MG TABLET. PO PRN ×2 (09:45→16:23)
[2016-11-25] MEDS: LUBIPROSTONE 8 MCG CAPSULE PO SCH ×2 (09:46→17:00)
[2016-11-25] MEDS: ANASTROZOLE 1 MG TABLET PO SCH (09:49)
[2016-11-25 11:28] VITALS: BP 114/52
--- NOTE | 2016-11-25 13:32 | RAD ---
Nuclear medicine whole body bone scan History: Staging of breast cancer. Comparison: CT abdomen pelvis 11/23/2016. CT chest 11/25/2016. Technique: Examination performed after intravenous administration of 25.8 mCi Technetium 99m MDP. Planar images of the whole body were obtained in the anterior and posterior projections. Findings: Distribution of radiopharmaceutical appears physiologic. No focal activity to suggest osseous metastatic disease is identified. Activity involving the left mid forearm is favored to be from injection. Impression: No evidence of osseous metastatic disease.
--- NOTE | 2016-11-25 13:52 | RAD ---
CT of the chest without contrast, 11/25/2016: History: Breast cancer staging Noncontrast scans were obtained as requested. There have been bilateral mastectomies with bilateral breast implants in place. No axillary adenopathy is evident. There is mild calcific plaquing of the thoracic aorta without evidence of aneurysm. Minimal coronary artery calcification is present. The heart is not enlarged. A trace amount of pericardial fluid is present. There are granulomatous calcifications of the left hilum. No mediastinal adenopathy is seen. There is mild bilateral apical scarring. A calcified granuloma is present in the left upper lobe. There is a small amount of bilateral pleural fluid, not evident on the 11/23/2016 CT abdomen exam. There are moderate streaky bibasilar pulmonary opacities which have progressed since the previous study. The appearance suggests atelectasis with a possible component of scarring. No pulmonary mass is seen. There are scattered spurs in the spine. IMPRESSION: 1. Small bilateral pleural effusions have developed with moderate streaky bibasilar atelectasis. 2. No specific evidence of metastatic disease in the chest. PQRS Compliance Statement: One or more of the following individualized dose reduction techniques were utilized for this examination: 1. Automated exposure control 2. Adjustment of the mA and/or kV according to patient size 3. Use of iterative reconstruction technique
--- NOTE | 2016-11-25 14:11 | PDOC ---
Subjective: Subjective: Tells me pain significantly improved. Tolerating PO. Says waiting to DC tonight. Objective: Vital Signs: Vital Signs Date Time Temp Pulse Resp B/P Pulse Ox O2 Delivery O2 Flow Rate FiO2 11/25/16 11:28 98.3 78 20 114/52 94 Room Air 98.3 11/24/16 19:40 2.0 Labs: Laboratory Tests Test 11/24/16 15:00 11/25/16 03:12 Urine Collection Type Unknown Urine Color Yellow Urine Clarity Clear Urine pH 6.0 Urine Specific [place] <=1.005 Urine Protein Negativemg/dL Urine Glucose (UA) Negativemg/dL Urine Ketones (Stick) Negativemg/dL Urine Blood Negative Urine Nitrite Negative Urine Bilirubin Negative Urine Urobilinogen Dipstick 1.0mg/dL Urine Leukocyte Esterase Trace Urine RBC 0/HPF Urine WBC 1-4/HPF Urine Squamous Epithelial Cells Few/LPF Urine Bacteria 0/HPF Sodium Level 141mmol/L Potassium Level 3.5mmol/L Chloride Level 105mmol/L Carbon Dioxide Level 29mmol/L Anion Gap 7 Blood Urea Nitrogen 3mg/dL Creatinine 0.8mg/dL Estimated GFR (Cockcroft-Gault) 73.2 BUN/Creatinine Ratio 4 Glucose Level 95mg/dL Calcium Level 8.0mg/dL Total Bilirubin 0.9mg/dL Direct Bilirubin 0.3mg/dL Aspartate Amino Transf (AST/SGOT) 79U/L Alanine Aminotransferase (ALT/SGPT) 234U/L Alkaline Phosphatase 208U/L Total Protein 5.3g/dL Albumin 2.5g/dL Albumin/Globulin Ratio 0.9 Imaging: Bone Scan 11/24/16 Impression: No evidence of osseous metastatic disease. Chest CT 11/25/16 IMPRESSION: 1. Small bilateral pleural effusions have developed with moderate streaky bibasilar atelectasis. 2. No specific evidence of metastatic disease in the chest. PE: GEN: NAD, empty lunch tray LUNGS: decreased anteriorly HEART: RRR ABD: BS+, less LUQ tenderness NEURO/PSYCH: A & O 3 A/P: LUQ/left flank pain w/ abnormal CT suggesting splenic infarct -heme/onc has seen, imaging as above -work-up in 12/2015 for abd pain included CTs, SBFT, GET, and EGD -reports colonoscopy w/ polyps ~5 years ago -on PPI, Amitiza Abnormal LFTs -AST and ALT improved, Alk Phos elevated -abd US, CT A/P unrevealing -- Possible DC today - CT chest w/ small pleural effusions as above. ZOILA BARKLEY Nov 25, 2016 14:11
[2016-11-25 15:43] VITALS: BP 112/65
[2016-11-25] MEDS ORDERED: HYDR-971 PO (16:38)
== END 2016-11-25 17:00 | disposition home or self-care (01) | DRG 598 ==
LOC: 2 NORTH 02:30
PROVIDERS: ADMIT Family Medicine; ATTEND Family Medicine
DX: C50.919 Malignant neoplasm of unspecified site of unspecified female breast (principal); D68.59 Other primary thrombophilia; J98.11 Atelectasis; K21.9 Gastro-esophageal reflux disease without esophagitis; K59.00 Constipation, unspecified; Z83.3 Family history of diabetes mellitus; D73.5 Infarction of spleen; K29.70 Gastritis, unspecified, without bleeding; Z90.13 Acquired absence of bilateral breasts and nipples; Z90.710 Acquired absence of both cervix and uterus; D57.1 Sickle-cell disease without crisis; F17.200 Nicotine dependence, unspecified, uncomplicated; I70.0 Atherosclerosis of aorta; Z90.49 Acquired absence of other specified parts of digestive tract; L40.9 Psoriasis, unspecified; Z17.0 Estrogen receptor positive status [ER+]; Z80.3 Family history of malignant neoplasm of breast; Z85.3 Personal history of malignant neoplasm of breast; Z86.010 Personal history of colon polyps; G89.29 Other chronic pain
CPT/HCPCS: 36415; 71250; 74177; 76700; 78306; 80053; 80076; 81001; 85027; 87086; 94250; 94640; 94760; 96374; A9503; J1170; J2405; J7030; Q9967

== ENCOUNTER → 2019-04-12 | Outpatient (CLI) | payer BC, OTHER ==
[~2019-04-12] MED LIST changes: -ANAS1TAB3 PO; +ANAS1TAB47 PO; +CONTRAST GIVEN. MC PRN; +HYDR-3164 PO; +IOHEXOL 240 MG/ML 50ML VIAL. PO ONE; +IOHEXOL 300 MG/ML 100ML VIAL. IV ONE; -PANT40TA3 PO; +PANT40TA77 PO
--- NOTE | 2019-04-12 09:18 | RAD ---
Examination: CT ABD PELV W/ORAL IV CONTRAST History: Fecal impaction, change in bowel habits Comparison/Correlation: 11/23/2016 CT abdomen and pelvis with contrast Findings: Axial images of the abdomen and pelvis were obtained following IV and oral contrast. Visualized lung bases are clear. Left breast implant is partially seen. Cholecystectomy noted. Liver, spleen, pancreas, and adrenal glands are unremarkable. Kidneys are unremarkable. Slight distention of the common bile duct which probably represents reservoir effect is noted. Previously seen infarct or other process involving the spleen has resolved. Circumferential wall thickening of the colon is identified diffusely. Subtle stranding about the colon also is noted. Diverticulosis is present. No abscess. No extraluminal gas. No bowel obstruction. There is an intraluminal lipoma identified involving the proximal ascending colon measuring up to 2 cm diameter and this is seen on axial image 50 of series 2 and coronal image 21 of series 4. Small umbilical hernia contains omental fat. No enlarged abdominal or pelvic lymph nodes. Abdominal aortic and iliac arterial calcifications are evident. No abdominal aortic aneurysm. No ascites or pelvic free fluid. Bony structures are unremarkable for the patient's age. Urinary bladder is unremarkable. Hysterectomy noted. Impression: Circumferential wall thickening of the colon with subtle surrounding stranding is of concern for colitis. No abscess collection. Diverticulosis is evident. Intraluminal lipoma is present within the proximal ascending colon. PQRS Compliance Statement: One or more of the following individualized dose reduction techniques were utilized for this examination: 1. Automated exposure control 2. Adjustment of the mA and/or kV according to patient size 3. Use of iterative reconstruction technique Electronically signed by: Raul Mosquera MD (04/12/2019 9:15 AM) [facility]
== END | disposition home or self-care (01) ==
LOC: CT 06:51
PROVIDERS: ATTEND Internal Medicine Gastroenterology
DX: K42.9 Umbilical hernia without obstruction or gangrene (principal); K57.90 Diverticulosis of intestine, part unspecified, without perforation or abscess without bleeding; D17.5 Benign lipomatous neoplasm of intra-abdominal organs; I70.0 Atherosclerosis of aorta; I70.8 Atherosclerosis of other arteries; F17.200 Nicotine dependence, unspecified, uncomplicated; Z90.710 Acquired absence of both cervix and uterus; Z90.49 Acquired absence of other specified parts of digestive tract; Z98.82 Breast implant status; Z90.89 Acquired absence of other organs
CPT/HCPCS: 74177; Q9966; Q9967

== ENCOUNTER → 2020-01-09 | Outpatient (CLI) | payer BC ==
[~2020-01-09] MED LIST changes: -CONTRAST GIVEN. MC PRN; -IOHEXOL 240 MG/ML 50ML VIAL. PO ONE; -IOHEXOL 300 MG/ML 100ML VIAL. IV ONE
--- NOTE | 2020-01-09 13:19 | PAIN ---
DATE OF SERVICE: 01/09/2020 INITIAL CONSULTATION FOR PAIN CLINIC CHIEF COMPLAINT: Right low back and hip pain. HISTORY OF PRESENT ILLNESS: This is a 64-year-old female who presents with history of pain in the right hip and gluteus going on for about 6 months or so. She is unsure exactly the timeframe, but it has been bothering her at least that long, not a result of any specific injury or action that she is aware of, but it has been very painful in the right posterior gluteus, worse with changing positions, standing, walking, getting up from a seated position and with walking and occasionally will be a very sharp, shooting, stabbing pain. The patient reports otherwise it is a throbbing pain that can be very sharp. She also has restless legs, which is bothering her at night and is also hurting in the right gluteus as well. The patient did have MRI scan of the lumbar spine showing minimal diffuse disk bulges throughout L1-L2 through L5-S1 without any specific stenosis or significant central stenosis or neural foraminal stenosis throughout. She reports the pain is worse with changing positions, especially standing from a seated position or with walking or standing or bending forward. The patient rates her disability rating from 0-10, 10 being the worst, is a 6 with family home responsibilities, 8 with social activity, 10 with occupation and 9 with self-care and 7 with life support activities. The patient reports it awakens her from sleep at least 2-3 times a night, does not affect her bowel or bladder control, but does affect her ability to walk as she is fearful that will have a sharp pain and she is very cautious in how she walks and stands especially with stairs. The patient has tried tramadol, which helps by about 50%. She has not had any formal physical therapies, chiropractic treatments or other therapies at this time. PAST MEDICAL HISTORY: Significant for breast cancer status post bilateral mastectomy in 2012 and chemotherapy following, hyperlipidemia, gastroesophageal reflux, psoriasis. OTHER SURGERIES: Include total abdominal hysterectomy, cholecystectomy, abdominal hernia repair. CURRENT MEDICATIONS: Include atorvastatin, Arimidex, and pantoprazole. ALLERGIES: The patient has no known drug allergies. FAMILY HISTORY: Significant for heart disease and diabetes. SOCIAL HISTORY: The patient does not drink alcohol, does not use any illegal, illicit or recreational drugs. Smokes less than a pack of cigarettes a day for the past 30 years. The patient is , has 3 children, living at home, lives in [facility] and works at a [employer], where she is on her feet most of her working day. REVIEW OF SYSTEMS: Positive for those items mentioned in history of present illness. All systems reviewed and otherwise negative. It is complete, full and well documented on the patient's chart. PHYSICAL EXAMINATION: VITAL SIGNS: The patient's blood pressure is 138/76, pulse 88, respirations 16, temperature 98.3 degrees Fahrenheit, height is 5 feet 6 inches, weight is 134 pounds. GENERAL: The patient is awake, alert, oriented, appropriate, very pleasant demeanor. HEENT: Shows normocephalic, atraumatic. Extraocular movements are intact and symmetrical. Oral cavity: Mucous membranes moist and pink. Dentition is intact. NECK: Shows anterior throat supple without palpable lymphadenopathy noted. Swallow reflex symmetrical. CHEST: Shows normal on inspection with previous surgical scar from mastectomy bilaterally. Breath sounds are clear to auscultation bilaterally. No rales, rhonchi or wheezes auscultated. HEART: Shows S1, S2 clear. No murmurs auscultated. ABDOMEN: Soft, obese, nontender, nondistended. No palpable organomegaly is noted. No rebound or guarding demonstrated. BACK: Shows spine grossly in the midline. Normal appearing cervical lordotic curvature, thoracic kyphotic curvature slightly increased and some minor flattening of lumbar lordotic curvature. Lumbar paraspinous muscle shows symmetrical on inspection, on palpation shows some moderate tenderness diffusely, but only diffusely in the low lumbar distribution without trigger points, without atrophy or hypertrophy, without asymmetry. The patient has full rotational motion of lumbar spine, greater than 10 degrees right and left as well as extension greater than 10 degrees, forward flexion 45 degrees without significant pain reported. EXTREMITIES: The patient's lower extremities show deep tendon reflexes 2+ in the patellar, 1+ tendo-calcaneus tendons. Motor exam is strong with 5/5 dorsiflexion, extension, quadriceps and hamstring flexion symmetrical. Peripheral pulses are 1+ posterior tibia. No peripheral edema is noted. Straight leg raise noted to be negative for reproduction of radicular symptoms bilaterally. The patient's posterior gluteus on the right side is very tender with palpation over the area roughly of the piriformis musculature superior medial to the ischial tuberosity, but inferolateral to the iliac bone which is fairly easily palpable on rotation with significant tenderness and pain over this area, but without significant radiation into the lower extremity. Left side is nontender throughout. The patient is able to stand, stand on her toes without difficulty or loss of balance, walks with normal appearing gait, does not appear to favor the right or left lower extremity, is not using any assistive device such as canes or walkers to ambulate. SKIN: Shows warm and dry, good turgor. She does have some psoriasis on the elbows. Otherwise, no sores, rashes or bruises throughout. IMPRESSION: 1. This is a 64-year-old female with approximately 6 months or so history of pain in the right posterior gluteus consistent with piriformis-type syndrome. 2. MRI scan of lumbar spine as noted. 3. History of breast cancer with surgery and chemotherapy. 4. Cigarette smoking. PLAN: Options were discussed with the patient including conservative medical managements, physical therapies and interventional techniques. She would like to pursue interventional techniques. We discussed a right piriformis injection; however, she will wait for preauthorization with her insurance provider. Once this is approved, we have her return for right-sided piriformis intramuscular injection at that time. In the meantime, the patient will continue with stretching and strengthening exercises. We showed her some stretches to do specifically for the piriformis and the sacroiliac region. She will perform these in the meantime and will also try a Medrol Dosepak. The patient was given instruction as well as side effects to be aware of with the medication as well and we will follow up as scheduled. HARLAN LIEBERMAN MD DR: ROBERTO/carol JOB#: [id number] / [id number] ARLEEN Jarvis MD
== END ==
LOC: PNCL 09:02
PROVIDERS: ATTEND Anesthesiology
DX: M54.5 Low back pain (principal); M25.551 Pain in right hip; F17.210 Nicotine dependence, cigarettes, uncomplicated; Z85.3 Personal history of malignant neoplasm of breast
CPT/HCPCS: G0463

== ENCOUNTER → 2020-01-23 | Outpatient (CLI) | payer BC ==
[~2020-01-23] MED LIST changes: +BUPIVACAINE MPF 0.25% 10 ML VIAL. ONE; +IOHEXOL 180 MG/ML 10 ML VIAL. ONE; +methylPREDNISolone ACETATE 80 MG/ML VIAL. ONE
--- NOTE | 2020-01-23 12:07 | PAIN ---
DATE OF SERVICE: 01/23/2020 PROGRESS NOTE FOR PAIN CLINIC DIAGNOSES: 1. Right piriformis syndrome. 2. Lumbar degenerative disk disease. HISTORY OF PRESENT ILLNESS: The patient is a 64-year-old female who returns for followup status post initial evaluation and preauthorization for a piriformis injection on the right. The patient reports she did fairly well with some Medrol Dosepak medication that we sent her last time about 50% improved for several days, but the pain has returned now in the right posterior hip radiating to posterior thigh into the knee on the right side only. The patient reports it is worse with walking, standing, changing positions, can be a sharp pain at times, shooting into the leg as well, but mostly just dull and aching in the hip. The patient reports that 10 on a scale of 10 at its worse, the past week, 8 on average, 6 at its least and is an 8 today. The patient reports it is constant, burning, stinging and shooting, sometimes sharp and dull aching in the hip. The patient reports it awakens her from sleep if she lies on her right side, intermittently, not every night. The patient reports no new motor or sensory deficits, no new bowel or bladder incontinence or other complaints. PHYSICAL EXAMINATION: VITAL SIGNS: The patient's blood pressure 130/74, pulse 93, respirations 20, temperature 98.5 degrees Fahrenheit, weight is 132 pounds. GENERAL: The patient is awake, alert, oriented, appropriate, very pleasant demeanor. HEENT: Shows normocephalic, atraumatic. Extraocular movements are intact and symmetrical. Oral cavity: Mucous membranes moist and pink. Dentition is intact. NECK: Shows anterior throat supple without palpable lymphadenopathy noted. Swallow reflex symmetrical. Neck shows full rotational motion of the cervical spine without difficulty or pain reported. CHEST: Shows normal on inspection. Breath sounds are clear. No rales, rhonchi or wheezes auscultated. HEART: Shows S1, S2 clear. ABDOMEN: Soft, nontender, nondistended. BACK: Shows spine grossly in the midline. Normal appearing thoracic kyphosis and lumbar lordotic curvature. Lumbar paraspinous muscle shows symmetrical on inspection with some very mild tenderness throughout the upper, middle and lower distribution of the paraspinous musculature, but without radiation or asymmetry. The patient has good rotational motion of lumbar spine, both laterally greater than 10 degrees right and left as well as extension greater than 10 degrees, forward flexion 45 degrees without significant pain reported. EXTREMITIES: Lower extremities show deep tendon reflexes 2+ in the patellar, 1+ tendo-calcaneus tendons. Motor exam is strong with 5/5 dorsiflexion, extension, quadriceps and hamstring flexion. The patient's right gluteus shows significant tenderness with palpation just superior and lateral to the ischial tuberosity with the hip flexed very firm and very tender musculature in this region. Left side is nontender, but without radiation with palpation on the right side. Options were discussed with the patient. The patient's old chart was reviewed as her current medication regimen updated. Current review of systems updated today as well. We will proceed with a right piriformis muscle injection today with fluoroscopic guidance. Risks were discussed including but not limited to bleeding, infection, possibility of intravascular injection sequelae, spread of local anesthetic and numbness, side effects of steroid medication, exposure to fluoroscopy and poor results regarding pain control. The patient understands and wished to proceed. The patient will return to clinic in approximately 2 weeks for followup. She was counseled on return appointment, activity level and side effects to be aware of. DIAGNOSIS: Right piriformis syndrome. PROCEDURE: Right piriformis musculature injection using C-arm fluoroscopic guidance under sterile prep and drape using local anesthetic. MEDICATION INJECTED: A total of 80 mg Depo-Medrol and 2 mL of 0.25% bupivacaine and 1 mL of contrast. CONDITION AT DISCHARGE: Stable. The patient tolerated procedure well, had no complications. HARLAN LIEBERMAN MD DR: ROBERTO/carol JOB#: [id number] / [id number]
== END ==
LOC: PNCL 11:16
PROVIDERS: ATTEND Anesthesiology
DX: G57.01 Lesion of sciatic nerve, right lower limb (principal); M51.36 Other intervertebral disc degeneration, lumbar region
CPT/HCPCS: 20552; 77002; J1040; J3490; Q9965

== ENCOUNTER → 2021-07-10 | Outpatient (CLI) | payer BC, MEDICARE ==
[~2021-07-10] MED LIST changes: -BUPIVACAINE MPF 0.25% 10 ML VIAL. ONE; -IOHEXOL 180 MG/ML 10 ML VIAL. ONE; -methylPREDNISolone ACETATE 80 MG/ML VIAL. ONE
--- NOTE | 2021-07-10 13:36 | PDOC ---
Progress Note - Pain Clinic Date of Service: DOS: DATE: 07/10/21 TIME: 13:31 Diagnosis: Dx: Right piriformis syndrome History or Present Illness: HPI: 66-year-old female returns last seen Jan 2020 patient had right piriformis musculature injection with excellent result zero 100% improvement for over a year patient reports pain returning now over the past 2 to 3 months but only very minimally now it is becoming more significant with pain rating the right lower extremity posterior gluteus into the right posterior thigh posterior calf and into the ankle on the right side with walking standing patient reports mostly it is noticeable with walking and standing but can be with sitting for more than 15 to 20 minutes patient rates her pain a nine on scale 10 is worse over the past week seven on average three at its least and is a seven today patient describes as sharp and aching shooting radiating burning and cramping at times as well without significant loss of function of the right lower extremity but it feels unstable when she is somewhat unstable with walking more than about 10 to 15 minutes secondary to the pain in the right leg and hip. Patient reports initially she did very well she was increase distance walking doing household activities work activities as well as travel with greater ease and comfort and driving with greater ease as well as sleeping better at night patient reports is waking her from sleep about every 4-5 hours currently over the past month or two. Patient reports no loss of motor function no bowel or bladder incontinence. Physical Exam: VS: Blood pressure is 143/75 pulse 98 respirations 18 temperature is 98.1 F weight is 131 pounds. PE: PHYSICAL EXAMINATION: GENERAL: The patient is awake, alert, oriented, appropriate, very pleasant in demeanor HEENT: Shows normocephalic, atraumatic. Extraocular movements are intact and symmetrical. Oral cavity: Mucous membranes moist and pink. NECK: Shows anterior throat supple without palpable lymphadenopathy noted. S wallow reflex symmetrical. CHEST: Shows normal on inspection. Breath sounds are clear bilaterally, distant no rales rhonchi or wheezes auscultated. HEART: Shows S1, S2 clear. No murmurs auscultated. ABDOMEN: Soft, nontender, nondistended. No palpable organomegaly is noted. BACK: Shows spine grossly in the midline. Normal-appearing cervical lordotic curvature. There is slightly increased thoracic kyphosis, some minor flattening of the lumbar lordotic curvature. Lumbar paraspinous muscles show symmetrical on inspection, on palpation shows some moderate tenderness diffusely throughout the upper, middle and lower distribution of the paraspinous muscles, but without specific trigger points, without radiation of pain. The patient has good rotational motion of the lumbar spine, both laterally as well as extension and flexion without significant difficulty. No tenderness over the spinous processes, sacrum or sacroiliac regions. Patient has significant tenderness with deep palpation over the medial aspect of the inferior gluteus and into the piriformis region between the ischial tuberosity and the sacrum with some mild radiation into the posterior thigh superiorly. EXTREMITIES: Lower extremities show deep tendon reflexes 2+ in the patellar and tendo calcaneus tendons. Motor exam is five on a scale of 5 with right dorsiflexion, extension, quadriceps and hamstring flexion and five/5 on the left. Peripheral pulses are 1+ posterior tibial. No peripheral edema is noted bilaterally. Lower extremities are warm and dry to touch, equal in color and appearance. SKIN: Shows warm and dry, good turgor. No edema. No sores, rashes or bruising throughout. Procedure: Procedure: Options were discussed with the patient. Patient chart was viewed as her current medication regimen updated current review of systems updated today as well. We will preauthorize patient for right piriformis injection with fluoroscopic guidance. Once approved, patient return to clinic for right piriformis muscular injection with fluoroscopic guidance. Medication Injected: Med Injected: None Condition at Discharge: Condition at Discharge: Condition at discharge is stable. HARLAN LIEBERMAN MD Jul 10, 2021 13:36
== END | disposition home or self-care (01) ==
LOC: PNCL 12:37
PROVIDERS: ATTEND Anesthesiology
DX: G57.01 Lesion of sciatic nerve, right lower limb (principal); E78.00 Pure hypercholesterolemia, unspecified; F32.9 Major depressive disorder, single episode, unspecified; Z90.49 Acquired absence of other specified parts of digestive tract; Z90.710 Acquired absence of both cervix and uterus; Z98.890 Other specified postprocedural states; Z79.899 Other long term (current) drug therapy; F17.210 Nicotine dependence, cigarettes, uncomplicated
CPT/HCPCS: 99212; G0463

== ENCOUNTER → 2021-07-18 | Outpatient (CLI) | payer MEDICARE ==
[~2021-07-18] MED LIST changes: +BUPIVACAINE MPF 0.25% 10 ML VIAL. ONE; +IOHEXOL 180 MG/ML 10 ML VIAL. ONE; +methylPREDNISolone ACETATE 80 MG/ML VIAL. ONE
--- NOTE | 2021-07-18 11:30 | PDOC4 ---
Procedure Note: ICD 10 Code: ICD 10 Code: M 79.18 Procedure Note: Patient was consented for right piriformis injection with fluoroscopic guidance. Risk were discussed including but not limited to bleeding flexion possibility of intravascular injection sequelae spread local anesthetic numbness side effects steroid medication, exposure fluoroscopy and poor results regarding pain control. Patient understands wished to proceed. Under sterile prep and drape patient in the left lateral decubitus position using C-arm fluoroscopic guidance patient's right hip ischial tuberosity and soft tissues were identified and over the area of significant tenderness overlying the piriformis musculature using 25-gauge needle and direct fluoroscopic visualization needle was advanced to the point of greatest discomfort and with some radiation into the lower extremity negative aspiration was noted at this point 2 cc of contrast was injected with good spread within th e piriformis distribution but without uptake or washout. At this time a solution containing 5 cc 0.25% bupivacaine and 80 mg of Depo-Medrol was then injected. Needle was withdrawn, sterile bandage was applied. Patient tolerated the procedure well had no complications. HARLAN LIEBERMAN MD Jul 18, 2021 11:30
--- NOTE | 2021-07-18 11:30 | PDOC ---
Progress Note - Pain Clinic Date of Service: DOS: DATE: 07/18/21 TIME: 11:25 Diagnosis: Dx: Right piriformis syndrome Lumbar degenerative disc diseas History or Present Illness: HPI: 66-year-old female returns for follow-up complaining of pain right posterior gluteus rating the posterior thigh posterior calf on the right side patient report is worse with walking standing patient had a piriformis injection a year and a half ago did very well near 100% improvement for 1-1/2 years patient reports pain is returning now rated an 8 on scale 10 is worst 6 on average 6 its least is a 6 today patient what is aching and sharp radiating shooting in the right lower extremity worse with walking standing changing positions better with sitting or laying down generally wakes her from sleep once or twice a night initially doing much better with walking standing changing positions household activities travel with greater ease now the pain is returned in the right lower extremity patient reports no bowel or bladder incontinence no loss of function but significant fatigability of the right leg with activity and especially walking and standing. Physical Exam: VS: Blood pressure is 143/85 pulse 101 respirations 16 temperature is 97.9 F height is 5 foot 6 inches weight is 130 pounds. PE: PHYSICAL EXAMINATION: GENERAL: The patient is awake, alert, oriented, appropriate, very pleasant demeanor HEENT: Shows normocephalic, atraumatic. Extraocular movements are intact and symmetrical. Oral cavity: Mucous membranes moist and pink. Dentition is intact. NECK: Shows anterior throat supple without palpable lymphadenopathy noted. Swallow reflex symmetrical. CHEST: Shows normal on inspection. Breath sounds are clear bilaterally, distant no rales or rhonchi. HEART: Shows S1, S2 clear. No murmurs auscultated. ABDOMEN: Soft, nontender, nondistended. No palpable organomegaly is noted. BACK: Shows spine grossly in the midline. Normal-appearing cervical lordotic curvature. There is slightly increased thoracic kyphosis, some minor flattening of the lumbar lordotic curvature. Lumbar paraspinous muscles show symmetrical on inspection, on palpation shows some moderate tenderness diffusely throughout the upper, middle and lower distribution of the paraspinous muscles without specific trigger points, without radiation of pain. The patient has good rotational motion of the lumbar spine, both laterally as well as extension and flexion without significant pain or difficulty. EXTREMITIES: Lower extremities show deep tendon reflexes 2+ in the patellar and tendo calcaneus tendons. Motor exam is 5 on a scale of 5 with right dorsiflexion, extension, quadriceps and hamstring flexion and 5/5 on the left. Peripheral pulses are 1+ posterior tibial. No peripheral edema is noted bilaterally. Lower extremities are warm and dry. Significant pain with palpation over the right inferior aspect of the gluteus medial to the ischial tuberosity without specific radiation but very tender with palpation left side is nontender. SKIN: Shows warm and dry, good turgor. No edema. No sores, rashes or bruising throughout. Procedure: Procedure: Options were discussed with patient. Patient chart reviews her medication regimen updated current review of systems updated today as well. We will proceed with a right piriformis injection today with fluoroscopic guidance. Risks discussed including not limited to bleeding infection possibility of intravascular injection sequelae spread local anesthetic numbness side effects of steroid medications post arthroscopy portals regarding pain control. Patient understands wished to proceed. Patient return to clinic in approximately 4 weeks for follow-up, was counseled as return appointment, activity level, and side effect to be aware of. Medication Injected: Med Injected: Under sterile prep and drape patient in the left lateral decubitus position using C-arm fluoroscopic guidance patient's right hip ischial tuberosity and soft tissues were identified and over the area of significant tenderness overlying the piriformis musculature using 25-gauge needle and direct fluoroscopic visualization needle was advanced to the point of greatest discomfort and with some radiation into the lower extremity negative aspiration was noted at this point 2 cc of contrast was injected with good spread within the piriformis distribution but without uptake or washout. At this time a solution containing 5 cc 0.25% bupivacaine and 80 mg of Depo-Medrol was then i njected. Needle was withdrawn, sterile bandage was applied. Patient tolerated the procedure well had no complications. Condition at Discharge: Condition at Discharge: Condition at discharge stable, patient tolerated the procedure well and had no complications. HARLAN LIEBERMAN MD Jul 18, 2021 11:30
== END | disposition home or self-care (01) ==
LOC: PNCL 10:45
PROVIDERS: ATTEND Anesthesiology
DX: G57.01 Lesion of sciatic nerve, right lower limb (principal); M79.18 Myalgia, other site; M51.36 Other intervertebral disc degeneration, lumbar region; E78.00 Pure hypercholesterolemia, unspecified; F32.9 Major depressive disorder, single episode, unspecified; F17.210 Nicotine dependence, cigarettes, uncomplicated; Z90.710 Acquired absence of both cervix and uterus; Z98.890 Other specified postprocedural states; Z85.3 Personal history of malignant neoplasm of breast; Z79.899 Other long term (current) drug therapy; Z80.3 Family history of malignant neoplasm of breast; Z82.49 Family history of ischemic heart disease and other diseases of the circulatory system; Z83.3 Family history of diabetes mellitus
CPT/HCPCS: 20552; 77002; J1040; J3490; Q9965